=== PATIENT | female | born 2000 | race Caucasian/White ===

== ENCOUNTER → 2020-09-16 | Outpatient (CLI) | payer BC ==
--- NOTE | 2020-09-16 16:01 | Diagnostic Imaging Report ---
PROCEDURE: Pelvic complete, transabdominal and transvaginal sonogram. Limited pelvic doppler. TECHNIQUE: Multiple real-time grayscale images were obtained of the pelvis in various projections transabdominally and transvaginally. Limited pelvic duplex images were obtained. HISTORY: Abnormal uterine bleeding. COMPARISON: None available. FINDINGS: Uterus: The uterus is anteverted and measures 8.5 x 4.4 x 5.1 cm. The myometrium is homogeneous without fibroids. Endometrium: The endometrium is normal in thickness and measures 1.0 cm. There is no fluid within the endometrial cavity. Adnexa: The right ovary is nonvisualized secondary to overlying bowel gas. The left ovary contains a 3.0 cm unilocular cyst. The left ovary measures 3.8 x 2.4 x 3.1 cm. Duplex images reveal normal vascular flow to the left ovary. Other: There is no free fluid within the pelvis. IMPRESSION: 1. Nonvisualized right ovary. Otherwise unremarkable pelvic ultrasound. Dictated by: Dictated on workstation # [id number]
== END ==
LOC: RAD 15:15
PROVIDERS: ATTEND Obstetrics & Gynecology
DX: N94.4 Primary dysmenorrhea (principal)
CPT/HCPCS: 76830; 76856

== ENCOUNTER 2021-03-04 20:04 | Emergency (ER) | payer OTHER, BC ==
[~2021-03-04] VITALS: Ht 149.9 cm; Wt 52.2 kg
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
[2021-03-04] MEDS ORDERED: CYCL10TA9 PO (20:52)
[2021-03-04] MEDS ORDERED: CYCLOBENZAPRINE 10 MG (FLEXERIL) TAB PO SCH (21:00)
[2021-03-04 21:15] VITALS: BP 142/84
== END 2021-03-04 21:16 | disposition home or self-care (01) ==
LOC: EDUNIT# 20:04 → ER 20:07
DX: M54.5 Low back pain (principal); V89.2XXA Person injured in unspecified motor-vehicle accident, traffic, initial encounter; Y92.488 Other paved roadways as the place of occurrence of the external cause
CPT/HCPCS: 72100; 84703

== ENCOUNTER → 2021-05-19 | Outpatient (CLI) | payer BC, OTHER ==
[~2021-05-19] MED LIST: CYCL10TA9 PO
--- NOTE | 2021-05-19 15:36 | Diagnostic Imaging Report ---
INDICATION: Painful lump in the right axilla for 2 months, waxing and waning. Sonographic interrogation of the area of painful lump in the right axilla was performed. There is an area of shadowing at this location which is difficult to measure. No discrete fluid collection is identified. No other abnormalities are identified. IMPRESSION: There is an area of ill-defined shadowing at the area of lump in the right axilla, indeterminate. Diagnostic mammography is recommended for further evaluation. BI-RADS Category 0 ACR BI-RADS Category 0: Incomplete. (Needs additional imaging evaluation). Result letter will be mailed to the patient. Note: At least 10% of breast cancer is not imaged by mammography. Dictated by: Dictated on workstation # [id number]
== END ==
LOC: RAD 13:48
PROVIDERS: ATTEND Surgery
DX: N63.31 Unspecified lump in axillary tail of the right breast (principal); N64.4 Mastodynia

== ENCOUNTER → 2021-05-24 | Outpatient (CLI) | payer BC ==
--- NOTE | 2021-05-24 16:57 | Diagnostic Imaging Report ---
INDICATION: Painful lump in the right axilla. COMPARISON: Correlation is made with an ultrasound performed several days earlier. TECHNIQUE: Unilateral right 2D and 3D exaggerated CC and MLO views of the right breast were performed. A BB marker was placed at the area of palpable abnormality in the right axilla. The current study was evaluated with a Computer Aided Detection (CAD) system. FINDINGS: The right breast is heterogeneously dense, limiting the sensitivity of mammography. No concerning mass is identified at the area of palpable abnormality in the right axilla. No mammographic abnormality is seen. No suspicious microcalcifications are identified. IMPRESSION: No concerning mammographic findings are identified. The area of heterogeneous shadowing noted by ultrasound is indeterminate but could perhaps be inflammatory. Perhaps a followup ultrasound of the right axilla after a course of antibiotic therapy could be performed in 3-4 weeks to confirm stability and/or clearing. ACR BI-RADS Category 3: Probably benign findings. Result letter will be mailed to the patient. Note: At least 10% of breast cancer is not imaged by mammography. Dictated by: Dictated on workstation # [id number]
== END ==
LOC: RAD 14:15
PROVIDERS: ATTEND Surgery
DX: R22.9 Localized swelling, mass and lump, unspecified (principal)
CPT/HCPCS: 77065; G0279

== ENCOUNTER 2021-06-11 20:13 | Emergency (ER) | payer BC ==
[~2021-06-11 20:13] MED LIST changes: +CYCL10TA25 PO; -CYCL10TA9 PO
== END 2021-06-11 20:45 | disposition left against medical advice (07) ==
LOC: EDUNIT# 20:13 → ER 20:14
DX: R11.0 Nausea (principal); J02.9 Acute pharyngitis, unspecified